=== PATIENT | female | born 1970 | race Caucasian/White ===

== ENCOUNTER 2018-04-29 18:45 | Emergency (ER) | payer OTHER, SELFPAY ==
[2018-04-29 18:55] VITALS: BP 106/61; PULSE 75; RESP 20; TEMP 37.1; O2SAT 98; BMI 23.3
--- NOTE | 2018-04-29 19:12 | DI.RAD.S_ITS ---
PROCEDURE: XR ANKLE RT MIN 3V INDICATIONS: twisted right ankle TECHNIQUE: 3 views of the ankle were acquired. COMPARISON: None. FINDINGS: Bones: Mildly displaced oblique fracture of the distal fibula. Ankle mortise is normally aligned. No suspicious bony lesions. Soft tissues: No tibiotalar joint effusion. Achilles tendon appears normal. IMPRESSION: Distal fibular fracture. Dictated by: Steff Franklin M.D. on 04/29/2018 at 19:34 Approved by: Steff Franklin M.D. on 04/29/2018 at 19:34
--- NOTE | 2018-04-29 20:19 | ED.LOWEXIN ---
HPI - Extremity Injury (Lower) <Angela Jung PA-C - Last Filed: 04/29/18 22:40> General Chief Complaint: Extremity Injury, Lower Stated Complaint: SLIPPED ON A TRAIL AND HURT HER RIGHT ANKLE Time Seen by Provider: 04/29/18 20:19 Source: patient Mode of arrival: wheelchair Limitations: no limitations History of Present Illness HPI Narrative: This 48-year-old healthy female slipped while hiking on a downhill slope, rolled her right foot and ankle and heard a snapping sound, then fell. She states that she had pain on the outside of her right ankle area right away and continues to have localized pain there. She did not have any other injury. She has not been able to bear weight or walk secondary to the pain. She has had swelling. She denies any pain in the foot. Denies any weakness or paresthesia. Related Data Home Medications Medication Instructions Recorded Confirmed CA PANTOTHENATE/FOLIC ACID/VIT 1 tab PO Q DAY #0 01/15/12 (MULTIVITAMIN) CHOLECALCIFEROL (VITAMIN D3) 400 iu PO Q DAY #0 01/15/12 (Vitamin D) IBUPROFEN (#MOTRIN) 600 mg PO PRN #0 01/15/12 loratadine [Claritin] 10 mg PO PRN #0 01/15/12 SENNOSIDES/DOCUSATE SODIUM (Stool 1 tab PO #0 01/29/12 Softener Tablet) Previous Rx's Medication Instructions Recorded temazepam 30 mg capsule See Label Instructions PO HS #0 tab 04/11/18 hydrocodone-acetaminophen [Boulder] 1 tab PO Q4H PRN #10 tab 04/29/18 Allergies Allergy/AdvReac Type Severity Reaction Status Date / Time meperidine [MEPERIDINE] Allergy Unknown Verified 04/29/18 18:59 BEE STING Allergy Severe Muscle Pain Uncoded 04/11/18 08:13 Review of Systems <Angela Jung PA-C - Last Filed: 04/29/18 22:40> Review of Systems All systems reviewed & are unremarkable except as noted in HPI and below Exam <Angela Jung PA-C - Last Filed: 04/29/18 22:40> Narrative Exam Narrative: GENERAL APPEARANCE: Patient sitting comfortably, in no distress. LUNGS: Clear to auscultation bilaterally. HEART: Rate and rhythm regular without murmur, normal S1 and S2, no S3 or S4. MUSCULOSKELETAL: Right lateral ankle there is a moderate effusion. She is exquisitely tender around the lateral malleolus. No tenderness elsewhere about the foot or ankle. No tenderness over the calf, chopra, or knee. She has full range of motion of the right knee. Reduced at the ankle secondary to tenderness, but she is able to maintain plantar and dorsiflexion of the toes against resistance. NEUROVASCULAR: Right foot is warm and pink with brisk cap refill and 2+ PT and DP pulses. Sensation is grossly intact Initial Vital Signs Initial Vital Signs: Vital Signs Temperature 98.7 F 04/29/18 18:55 Pulse Rate 75 04/29/18 18:55 Respiratory Rate 20 04/29/18 18:55 Blood Pressure 106/61 04/29/18 18:55 Pulse Oximetry 98 04/29/18 18:55 <Milo Chavez MD - Last Filed: 05/01/18 05:34> Initial Vital Signs Initial Vital Signs: Vital Signs Temperature 98.7 F 04/29/18 18:55 Pulse Rate 75 04/29/18 18:55 Respiratory Rate 20 04/29/18 18:55 Blood Pressure 106/61 04/29/18 18:55 Pulse Oximetry 98 04/29/18 18:55 Course <Angela Jung PA-C - Last Filed: 04/29/18 22:40> Hospital Course: Patient was placed in a stirrup splint and Sanjiv wrap. Splint fit comfortably, neurovascular intact after splint placement. Patient was given a Boulder prepack for tonight and a prescription. She will also take ibuprofen at home. She agreed to return if any acutely worsening symptoms, otherwise will call Orthopedics 1st thing in the morning for follow-up Orders Ordered: Discontinued Medications Hydrocodone Bitart/Acetaminophen (Vicodin Prepack) 1 bottle MISC SEEINSTR ONE Stop: 04/29/18 20:45 Last Admin: 04/29/18 22:27 Dose: 1 bottle Hydrocodone Bitart/Acetaminophen (Boulder 5/325) 1 tab PO NOW ONE Stop: 04/29/18 20:45 Last Admin: 04/29/18 21:06 Dose: 1 tab Ibuprofen (Advil) 800 mg PO NOW ONE Stop: 04/29/18 20:45 Last Admin: 04/29/18 21:07 Dose: 800 mg Vital Signs - 8 hr 04/29/18 18:55 04/29/18 22:27 Temperature 98.7 F Pulse Rate 75 68 Respiratory Rate 20 18 Blood Pressure 106/61 Blood Pressure [Right Arm] 98/56 L Pulse Oximetry 98 98 <Milo Chavez MD - Last Filed: 05/01/18 05:34> Orders Ordered: Discontinued Medications Hydrocodone Bitart/Acetaminophen (Vicodin Prepack) 1 bottle MISC SEEINSTR ONE Stop: 04/29/18 20:45 Last Admin: 04/29/18 22:27 Dose: 1 bottle Hydrocodone Bitart/Acetaminophen (Boulder 5/325) 1 tab PO NOW ONE Stop: 04/29/18 20:45 Last Admin: 04/29/18 21:06 Dose: 1 tab Ibuprofen (Advil) 800 mg PO NOW ONE Stop: 04/29/18 20:45 Last Admin: 04/29/18 21:07 Dose: 800 mg Vital Signs - 8 hr 04/29/18 18:55 04/29/18 22:27 Temperature 98.7 F Pulse Rate 75 68 Respiratory Rate 20 18 Blood Pressure 106/61 Blood Pressure [Right Arm] 98/56 L Pulse Oximetry 98 98 MDM - Extremity Injury (Lower) <Angela Jung PA-C - Last Filed: 04/29/18 22:40> Imaging Data extremity: Radiologist's impression: [place] [address] XRay Report Signed Patient: Maryjane Freed MR#: [id number] : 1970 Acct:[id number] Age/Sex: 48 / F Date of Service: 04/29/18 Loc: ED Accession Number: [id number] Procedure: XR ankle RT min 3V Ordering Provider: Angela Jung P.A-C PROCEDURE: XR ANKLE RT MIN 3V INDICATIONS: twisted right ankle TECHNIQUE: 3 views of the ankle were acquired. COMPARISON: None. FINDINGS: Bones: Mildly displaced oblique fracture of the distal fibula. Ankle mortise is normally aligned. No suspicious bony lesions. Soft tissues: No tibiotalar joint effusion. Achilles tendon appears normal. IMPRESSION: Distal fibular fracture. Dictated by: Steff Franklin M.D. on 04/29/2018 at 19:34 Approved by: Steff Franklin M.D. on 04/29/2018 Discharge Plan Departure Patient Disposition: Home, Self-Care Clinical Impression: Fracture tibia/fibula Discharge Date/Time: 04/29/18 22:43 Interventions: ED Discharge Assessment Last Done: 04/29/18 22:40 Instructions: DI for Ankle Fracture Activity Restrictions/Additional Instructions: You have a break in the fibula, the small bone on the outside of your lower leg that meets at the ankle. This is only minimally out of place, so we have splinted this for you tonight. Please avoid putting weight on it, and use crutches at all times. Take ibuprofen 6-800 mg every 8 hr, and you can use the pain pills that we gave you tonight if needed. I have given you a prescription for a little bit more of the pain medication to fill if needed. You should not drive while taking this as it can make you sleepy. Please call [facility] 1st thing tomorrow and let them know that you were seen here for a fracture that was splinted, and need to be seen for follow-up this week. Return if you have any acutely worsening symptoms in the interim Prescriptions: New hydrocodone-acetaminophen [Boulder] 5-325 mg tablet 1 tab PO Q4H PRN (Reason: leg/ankle pain) Qty: 10 RF: 0 No Action loratadine [Claritin] 10 MG tablet 10 mg PO PRN Qty: 0 RF: 0 CA PANTOTHENATE/FOLIC ACID/VIT (MULTIVITAMIN) 1 tab PO Q DAY Qty: 0 RF: 0 CHOLECALCIFEROL (VITAMIN D3) (Vitamin D) 400 iu PO Q DAY Qty: 0 RF: 0 IBUPROFEN (#MOTRIN) 600 mg PO PRN Qty: 0 RF: 0 SENNOSIDES/DOCUSATE SODIUM (Stool Softener Tablet) 1 tab PO Qty: 0 RF: 0 temazepam 30 mg capsule See Label Instructions PO HS Qty: 0 RF: 1 Referrals: [facility] [Outside] Can Morgan MD [Physician] - <Milo Chavez MD - Last Filed: 05/01/18 05:34> Sign Out Provider Sign Out Attestation: The PA/GLOBAL ACCOUNT MANAGER functioned independently for the care of this pt, I was available, but not asked to participate in care. I am unable to determine appropriateness of management without personally examining the pt.
--- NOTE | 2018-04-29 20:23 | PC.NURSE ---
Max pain in R lateral malleolar aspect of R ankle
--- NOTE | 2018-04-29 20:24 | ED_ITS ---
HPI - Extremity Injury (Lower) <Angela Jung PA-C - Last Filed: 04/29/18 22:40> General Chief Complaint: Extremity Injury, Lower Stated Complaint: SLIPPED ON A TRAIL AND HURT HER RIGHT ANKLE Time Seen by Provider: 04/29/18 20:19 Source: patient Mode of arrival: wheelchair Limitations: no limitations History of Present Illness HPI Narrative: This 48-year-old healthy female slipped while hiking on a downhill slope, rolled her right foot and ankle and heard a snapping sound, then fell. She states that she had pain on the outside of her right ankle area right away and continues to have localized pain there. She did not have any other injury. She has not been able to bear weight or walk secondary to the pain. She has had swelling. She denies any pain in the foot. Denies any weakness or paresthesia. Related Data Home Medications Medication Instructions Recorded Confirmed CA PANTOTHENATE/FOLIC ACID/VIT 1 tab PO Q DAY #0 01/15/12 (MULTIVITAMIN) CHOLECALCIFEROL (VITAMIN D3) 400 iu PO Q DAY #0 01/15/12 (Vitamin D) IBUPROFEN (#MOTRIN) 600 mg PO PRN #0 01/15/12 loratadine [Claritin] 10 mg PO PRN #0 01/15/12 SENNOSIDES/DOCUSATE SODIUM (Stool 1 tab PO #0 01/29/12 Softener Tablet) Previous Rx's Medication Instructions Recorded temazepam 30 mg capsule See Label Instructions PO HS #0 tab 04/11/18 hydrocodone-acetaminophen [Asher] 1 tab PO Q4H PRN #10 tab 04/29/18 Allergies Allergy/AdvReac Type Severity Reaction Status Date / Time meperidine [MEPERIDINE] Allergy Unknown Verified 04/29/18 18:59 BEE STING Allergy Severe Muscle Pain Uncoded 04/11/18 08:13 Review of Systems <Angela Jung PA-C - Last Filed: 04/29/18 22:40> Review of Systems All systems reviewed & are unremarkable except as noted in HPI and below Exam <Angela Jung PA-C - Last Filed: 04/29/18 22:40> Narrative Exam Narrative: GENERAL APPEARANCE: Patient sitting comfortably, in no distress. LUNGS: Clear to auscultation bilaterally. HEART: Rate and rhythm regular without murmur, normal S1 and S2, no S3 or S4. MUSCULOSKELETAL: Right lateral ankle there is a moderate effusion. She is exquisitely tender around the lateral malleolus. No tenderness elsewhere about the foot or ankle. No tenderness over the calf, chopra, or knee. She has full range of motion of the right knee. Reduced at the ankle secondary to tenderness , but she is able to maintain plantar and dorsiflexion of the toes against resistance. NEUROVASCULAR: Right foot is warm and pink with brisk cap refill and 2+ PT and DP pulses. Sensation is grossly intact Initial Vital Signs Initial Vital Signs: Vital Signs Temperature 98.7 F 04/29/18 18:55 Pulse Rate 75 04/29/18 18:55 Respiratory Rate 20 04/29/18 18:55 Blood Pressure 106/61 04/29/18 18:55 Pulse Oximetry 98 04/29/18 18:55 <Milo Chavez MD - Last Filed: 05/01/18 05:34> Initial Vital Signs Initial Vital Signs: Vital Signs Temperature 98.7 F 04/29/18 18:55 Pulse Rate 75 04/29/18 18:55 Respiratory Rate 20 04/29/18 18:55 Blood Pressure 106/61 04/29/18 18:55 Pulse Oximetry 98 04/29/18 18:55 Course <Angela Jung PA-C - Last Filed: 04/29/18 22:40> Hospital Course: Patient was placed in a stirrup splint and Sanjiv wrap. Splint fit comfortably, neurovascular intact after splint placement. Patient was given a Asher prepack for tonight and a prescription. She will also take ibuprofen at home. She agreed to return if any acutely worsening symptoms, otherwise will call Orthopedics 1st thing in the morning for follow-up Orders Ordered: Discontinued Medications Hydrocodone Bitart/Acetaminophen (Vicodin Prepack) 1 bottle MISC SEEINSTR ONE Stop: 04/29/18 20:45 Last Admin: 04/29/18 22:27 Dose: 1 bottle Hydrocodone Bitart/Acetaminophen (Asher 5/325) 1 tab PO NOW ONE Stop: 04/29/18 20:45 Last Admin: 04/29/18 21:06 Dose: 1 tab Ibuprofen (Advil) 800 mg PO NOW ONE Stop: 04/29/18 20:45 Last Admin: 04/29/18 21:07 Dose: 800 mg Vital Signs - 8 hr 04/29/18 18:55 04/29/18 22:27 Temperature 98.7 F Pulse Rate 75 68 Respiratory Rate 20 18 Blood Pressure 106/61 Blood Pressure [Right Arm] 98/56 L Pulse Oximetry 98 98 <Milo Chavez MD - Last Filed: 05/01/18 05:34> Orders Ordered: Discontinued Medications Hydrocodone Bitart/Acetaminophen (Vicodin Prepack) 1 bottle MISC SEEINSTR ONE Stop: 04/29/18 20:45 Last Admin: 04/29/18 22:27 Dose: 1 bottle Hydrocodone Bitart/Acetaminophen (Asher 5/325) 1 tab PO NOW ONE Stop: 04/29/18 20:45 Last Admin: 04/29/18 21:06 Dose: 1 tab Ibuprofen (Advil) 800 mg PO NOW ONE Stop: 04/29/18 20:45 Last Admin: 04/29/18 21:07 Dose: 800 mg Vital Signs - 8 hr 04/29/18 18:55 04/29/18 22:27 Temperature 98.7 F Pulse Rate 75 68 Respiratory Rate 20 18 Blood Pressure 106/61 Blood Pressure [Right Arm] 98/56 L Pulse Oximetry 98 98 MDM - Extremity Injury (Lower) <Angela Jung PA-C - Last Filed: 04/29/18 22:40> Imaging Data extremity: Radiologist's impression: [place] [address] XRay Report Signed Patient: Maryjane Freed MR#: [id number] : 1970 Acct:[id number] Age/Sex: 48 / F Date of Service: 04/29/18 Loc: ED Accession Number: [id number] Procedure: XR ankle RT min 3V Ordering Provider: Angela Jung P.A-C PROCEDURE: XR ANKLE RT MIN 3V INDICATIONS: twisted right ankle TECHNIQUE: 3 views of the ankle were acquired. COMPARISON: None. FINDINGS: Bones: Mildly displaced oblique fracture of the distal fibula. Ankle mortise is normally aligned. No suspicious bony lesions. Soft tissues: No tibiotalar joint effusion. Achilles tendon appears normal. IMPRESSION: Distal fibular fracture. Dictated by: Steff Franklin M.D. on 04/29/2018 at 19:34 Approved by: Steff Franklin M.D. on 04/29/2018 Discharge Plan Departure Patient Disposition: Home, Self-Care Clinical Impression: Fracture tibia/fibula Discharge Date/Time: 04/29/18 22:43 Interventions: ED Discharge Assessment Last Done: 04/29/18 22:40 Instructions: DI for Ankle Fracture Activity Restrictions/Additional Instructions: You have a break in the fibula, the small bone on the outside of your lower leg that meets at the ankle. This is only minimally out of place, so we have splinted this for you tonight. Please avoid putting weight on it, and use crutches at all times. Take ibuprofen 6-800 mg every 8 hr, and you can use the pain pills that we gave you tonight if needed. I have given you a prescription for a little bit more of the pain medication to fill if needed. You should not drive while taking this as it can make you sleepy. Please call [facility] 1st thing tomorrow and let them know that you were seen here for a fracture that was splinted, and need to be seen for follow-up this week. Return if you have any acutely worsening symptoms in the interim Prescriptions: New hydrocodone-acetaminophen [Asher] 5-325 mg tablet 1 tab PO Q4H PRN (Reason: leg/ankle pain) Qty: 10 RF: 0 No Action loratadine [Claritin] 10 MG tablet 10 mg PO PRN Qty: 0 RF: 0 CA PANTOTHENATE/FOLIC ACID/VIT (MULTIVITAMIN) 1 tab PO Q DAY Qty: 0 RF: 0 CHOLECALCIFEROL (VITAMIN D3) (Vitamin D) 400 iu PO Q DAY Qty: 0 RF: 0 IBUPROFEN (#MOTRIN) 600 mg PO PRN Qty: 0 RF: 0 SENNOSIDES/DOCUSATE SODIUM (Stool Softener Tablet) 1 tab PO Qty: 0 RF: 0 temazepam 30 mg capsule See Label Instructions PO HS Qty: 0 RF: 1 [facility]] Can Morgan MD [Physician] - <Milo Chavez MD - Last Filed: 05/01/18 05:34> Sign Out Provider Sign Out Attestation: The PA/LITIGATION LEGAL ASSISTANT functioned independently for the care of this pt, I was available, but not asked to participate in care. I am unable to determine appropriateness of management without personally examining the pt.
[2018-04-29] MEDS: HYDROCODONE/ACET 5/325 TABLET 1 TAB PO (21:06)
[2018-04-29] MEDS: IBUPROFEN 400 MG TABLET 800 MG PO (21:07)
[2018-04-29 22:27] VITALS: BP 98/56; PULSE 68; RESP 18; O2SAT 98
[2018-04-29] MEDS: HYDROCODONE/ACET 5/325 PREPACK 1 BOTTLE MISC (22:27)
--- NOTE | 2018-04-29 22:40 | PC.NURSE ---
Provided crutch use with written dc instruction and pt able to demonstrate using crutches from pt's bed to nursing zepeda and back to bed in stable gait after crutch fitted by this RN.
== END 2018-04-29 22:43 | disposition home or self-care (01) ==
PROVIDERS: Emergency Provider Internal Medicine
DX: S82.201A Unspecified fracture of shaft of right tibia, initial encounter for closed fracture (principal); S82.401A Unspecified fracture of shaft of right fibula, initial encounter for closed fracture; W01.0XXA Fall on same level from slipping, tripping and stumbling without subsequent striking against object, initial encounter; Y93.01 Activity, walking, marching and hiking
CPT/HCPCS: 73610; 99283

== ENCOUNTER → 2018-10-17 08:04 | Outpatient (CLI) | payer OTHER, SELFPAY ==
--- NOTE | 2018-10-17 | DI.MG.S_ITS ---
BILATERAL DIGITAL SCREENING MAMMOGRAM 3D/2D WITH CAD: 10/17/2018 CLINICAL: Routine screening. Family history of breast cancer. Comparison is made to exams dated: 09/28/2016 mammogram, 09/09/2015 mammogram, and 06/11/2014 mammogram - [facility]. The tissue of both breasts is heterogeneously dense. This may lower the sensitivity of mammography. Current study was also evaluated with a Computer Aided Detection (CAD) system. No significant masses, calcifications, or other findings are seen in either breast. There has been no significant interval change. IMPRESSION: NEGATIVE There is no mammographic evidence of malignancy. A 1 year screening mammogram is recommended. This exam was interpreted at Station ID: [id number]. NOTE: For mammograms, a report in lay terms will be sent to the patient. Approximately 15% of breast malignancies will not be visualized mammographically. In the management of a palpable breast mass, a negative mammogram must not discourage biopsy of a clinically suspicious lesion. Electronically Signed By: Brooklyn francois/jennifer:10/17/2018 08:39:46 letter sent: Normal Exam ACR BI-RADS Category 1: Negative [id number]
== END ==
DX: Z12.31 Encounter for screening mammogram for malignant neoplasm of breast (principal); Z80.3 Family history of malignant neoplasm of breast
CPT/HCPCS: 77063; 77067

== ENCOUNTER → 2019-05-25 08:00 | Outpatient (CLI) | payer OTHER, SELFPAY ==
[2019-05-25 10:00] LABS: Cholesterol 199 mg/dL (140-199); Glucose 94 mg/dL (70-100); HDL Cholesterol 72 mg/dL (40-60); LDL Cholesterol Calculated 111 mg/dL (<100); Triglycerides 78 mg/dL (35-150)
== END ==
PROVIDERS: Visit Provider Registered Nurse
DX: Z00.00 Encounter for general adult medical examination without abnormal findings (principal)
CPT/HCPCS: 36415; 80061; 82947

== ENCOUNTER → 2019-05-26 08:51 | Outpatient (CLI) | payer OTHER, SELFPAY ==
--- NOTE | 2019-05-26 08:54 | DI.RAD.S_ITS ---
PROCEDURE: XR CHEST 2V INDICATIONS: Unintentional weight loss TECHNIQUE: 2 views of the chest were acquired. COMPARISON: [facility], RG, XR CXR 2 VIEW, 12/21/2004, 8:09. [facility], JELANI, CHEST 2 VIEW, 02/24/2009, 8:03. FINDINGS: Surgical changes and devices: None. Lungs and pleura: Lungs are clear. No pleural effusions or pneumothorax. Mediastinum: Mediastinal contours are normal. Heart size is normal. Bones and chest wall: No suspicious bony abnormalities. Soft tissues appear unremarkable. IMPRESSION: No acute cardiopulmonary disease. Dictated by: Chris Odell M.D. on 05/26/2019 at 9:49 Approved by: Chris Odell M.D. on 05/26/2019 at 9:50
[2019-05-26 10:28] LABS: Add Manual Diff / Slide Review NO; Basophils Absolute Auto 0 /uL (0-100); Basophils Percent Auto 0.8 % (0-2); Eosinophils Absolute Auto 0 /uL (0-450); Eosinophils Percent Auto 0.8 % (2-4); Hematocrit 40.5 % (36-46); Hemoglobin 13.1 g/dL (12.0-16.0); Lymphocytes Absolute Auto 1300 /uL (1100-4500); Lymphocytes Percent Auto 26.6 % (25-40); Mean Corpuscular HGB Conc 32.3 % (30-36); Mean Corpuscular Volume 83.4 fL (80-100); Monocytes Absolute Auto 400 /uL (0-900); Monocytes Percent Auto 9.2 % (3-14); Neutrophils Absolute Auto 3000 /uL (1500-7000); Neutrophils Percent Auto 62.6 % (50-75); Platelet Count 255 X10^3/uL (150-400); Red Blood Cell Count 4.86 X10^6/uL (4.0-5.2); Red Cell Distribution Width 15.7 % (11.6-14.8); White Blood Cell Count 4.8 X10^3/uL (4.5-11.0)
[2019-05-26 10:42] LABS: Hemoglobin A1C% w Est Avg Glu 5.2 % (4.0-6.0)
[2019-05-26 10:48] LABS: Alanine Aminotransferase 167 IU/L (9-52); Albumin 4.7 g/dL (3.5-5.0); Albumin Globulin Ratio 1.6 (1.0-2.8); Alkaline Phosphatase 52 U/L (38-126); Aspartate Aminotransferase 102 IU/L (14-36); BUN Creatinine Ratio 21.3 (6-22); Bilirubin Total 1.2 mg/dL (0.2-1.3); Blood Urea Nitrogen 17 mg/dL (7-17); Calcium 9.5 mg/dL (8.4-10.2); Carbon Dioxide 25 mmol/L (22-32); Chloride 105 mmol/L (98-107); Estimated Glomerular Filt Rate > 60.0 mL/min (>60); Glucose 82 mg/dL (70-100); HEMOLYSIS < 15 (0-50); Potassium 5.1 mmol/L (3.4-5.1); Sodium 140 mmol/L (137-145); Total Protein 7.7 g/dL (6.3-8.2)
[2019-05-26 10:56] LABS: C-Reactive Protein Quant < 0.5 mg/dL (<1.0)
[2019-05-26 11:10] LABS: Erythrocyte Sedimentation Rate 3 MM/HR (0-20)
[2019-05-26 11:11] LABS: Appearance Urine UA CLEAR; Bilirubin Urine UA NEGATIVE (NEGATIVE); Color Urine UA YELLOW; Glucose Urine UA NEGATIVE (Negative); Ketones Urine UA NEGATIVE (NEGATIVE); Leukocyte Esterase Urine UA TRACE (NEGATIVE); Nitrite Urine UA NEGATIVE (Negative); Occult Blood Urine UA NEGATIVE (Negative); Protein Urine UA NEGATIVE (Negative); Urobilinogen Urine UA 0.2 E.U./dL (0.2); pH Urine UA 5.5 (4.5-8.0)
[2019-05-26 11:22] LABS: TSH w/ Reflex to FT4 2.49 uIU/mL (0.47-4.68)
[2019-05-26 11:34] LABS: Bacteria Urine Few (2-10); RBC Urine 0-1/HPF (0-5/HPF); Squamous Epithelial Cell Urine 1-5 /HPF (0-5/HPF); WBC Urine 0-1/HPF (0-5/HPF)
[2019-05-26 11:35] LABS: Culture Indicated Urine Specimen Cultured
== END ==
PROVIDERS: Visit Provider Registered Nurse
DX: R63.4 Abnormal weight loss (principal); Z12.11 Encounter for screening for malignant neoplasm of colon
CPT/HCPCS: 36415; 71046; 80053; 81001; 83036; 84443; 85025; 85651; 86140; 87086

== ENCOUNTER → 2019-05-27 08:15 | Outpatient (CLI) | payer OTHER, SELFPAY ==
[2019-05-29 14:45] LABS: Fecal Immunochemical Test NOT DETECTED (NOT DETECTED)
== END ==
PROVIDERS: PCP Registered Nurse; Visit Provider Registered Nurse
DX: Z12.11 Encounter for screening for malignant neoplasm of colon (principal)
CPT/HCPCS: 82274

== ENCOUNTER → 2019-06-01 07:14 | Outpatient (CLI) | payer OTHER, SELFPAY ==
--- NOTE | 2019-06-01 07:15 | DI.US.S_ITS ---
PROCEDURE: US ABDOMEN COMPLETE INDICATIONS: ELEVATED LIVER ENZYMES TECHNIQUE: Real-time scanning was performed of the abdominal and retroperitoneal organs, with image documentation. COMPARISON: [facility], , ABDOMEN LIMITED, 09/03/2012, 11:26. FINDINGS: Liver: Liver is normal in size and homogeneous in echotexture. Gallbladder: No gallstones identified. Normal gallbladder wall. No pericholecystic fluid. Negative sonographic Berg sign. Biliary ducts: Intrahepatic bile ducts are non-dilated. Extrahepatic bile duct caliber measures 6.0 mm. Normal is 6-7 mm or less in diameter, or 10 mm or less post-cholecystectomy. Pancreas: Visualized portions of the pancreas are sonographically normal. Spleen: Spleen is normal in size and homogeneous in echotexture. Kidneys: Kidneys are normal in size and echotexture. Right kidney measures 12.0 cm long; left kidney measures 11.0 cm long. No hydronephrosis or nephrolithiasis. No solid masses. Simple right renal cyst measuring 21 mm. Aorta: Visualized aorta is normal in caliber at less than 3 cm. Iliacs: Proximal common iliac arteries are normal in caliber at less than 2.5 cm. IVC: Intrahepatic inferior vena cava is patent. Miscellaneous: No free abdominal fluid. IMPRESSION: No source for elevated LFTs identified. Dictated by: Juan Madera [facility] Interpreted: Julius Rasmussen MD on 06/01/2019 at 14:13 Approved by: Julius Rasmussen M.D. on 06/01/2019 at 14:20
== END ==
PROVIDERS: PCP Registered Nurse; Visit Provider Registered Nurse
DX: R74.0 Nonspecific elevation of levels of transaminase and lactic acid dehydrogenase [LDH] (principal)
CPT/HCPCS: 76700

== ENCOUNTER → 2019-06-02 07:50 | Outpatient (CLI) | payer OTHER, SELFPAY ==
[2019-06-04 16:24] LABS: Hepatitis A Antibody IgM NONREACTIVE (NONREACTIVE); Hepatitis Acute Panel Interp 0.01; Hepatitis B Core Antibody IgM NONREACTIVE (NONREACTIVE); Hepatitis B Surface Antigen NONREACTIVE (NONREACTIVE); Hepatitis C Antibody NONREACTIVE
[2019-06-04 22:00] LABS: (tTG) Ab, IgA < 1 U/mL
== END ==
PROVIDERS: PCP Registered Nurse; Visit Provider Registered Nurse
DX: R74.8 Abnormal levels of other serum enzymes (principal); K52.9 Noninfective gastroenteritis and colitis, unspecified; R63.4 Abnormal weight loss
CPT/HCPCS: 36415; 80074; 82784; 83516; 86255

== ENCOUNTER 2019-09-30 07:30 | Outpatient (RCR) | payer OTHER, SELFPAY ==
--- NOTE | 2019-09-18 13:16 | PT.OIE ---
Current Diagnoses Other specified disorders of muscle (09/18/19) Stress incontinence (female) (male) (09/18/19) Past Medical History (Last Reviewed 04/24/19 @ 08:49 by Can Morgan MD) Chicken pox (Resolved) Genital warts (Resolved 1987) HPV (human papilloma virus) infection (Resolved 1987) Past Surgical History (Last Reviewed 04/24/19 @ 08:49 by Can Morgan MD) Anesthesia (Resolved) Status post endometrial ablation (Resolved 2002) Visit Care Team Role Provider Type ARISTEO Barger Primary Care Provider Advanced Station Worker Specialty: Medical Address: [address] [place] [address] Email: [email or web address] Can Morgan MD Attending Provider Physician Specialty: TELEVISION ACTOR Address: [address] [place] [address] Email: [email or web address] Physical Therapy Initial Evaluation PT-OP-A Visit Information Start: 09/18/19 07:28 Freq: Status: Active Protocol: Document 09/18/19 07:30 AMB (Rec: 09/20/19 13:16 AMB [email or web address]) Out-Patient Physical Therapy Visit Information Visit Information Visit Type Initial Evaluation Visit Start Time 07:30 Visit Stop Time 08:15 Total Visit Minutes 45 Visit Number 1 PT-OP-B Current Condition Start: 09/18/19 07:28 Freq: Status: Active Protocol: Document 09/18/19 07:30 AMB (Rec: 09/20/19 13:16 AMB [email or web address]) Current Condition History of Current Condition Onset Date 2 years ago Current Complaints intermittent urinary leaking with strong cough/ sneeze History of Current Condition Maryjane reports she has had a little bit of leaking on and off. She wears pantiliners and it is just a few drops, especially if she is standing or walking. She thinks she may be going through menopause , but had a uterine ablation at age 33 and has not had a period since. She has noticed more thinking vaginal tissue/ needing lubrication with intercourse. She does have a previous history of constipation, but it is now under good control, but she does have issues with hemorrhoids as a result. She has had one vaginal delivery and reports tearing, not sure what degree maybe a 2. She denies a specific feeling of pelvic heaviness. She does drink a lot of water, guesses probably close to 160 oz/day, but does work out a lot. Treatment Goals Patient/Caregiver Goals Avoid leaking, avoid worsening of symptoms Prior Functional Status Baseline Function- ADL's Independent Baseline Function- Mobility Independent Current Functional Impairments (Reported) Functional Limitations- ADL's leaking with cough or sneeze Personal Factors Other Personal Factors That May Effect History of neck pain Therapy/Recovery PT-OP-C Subjective Start: 09/18/19 07:28 Freq: Status: Active Protocol: Document 09/18/19 07:30 AMB (Rec: 09/20/19 13:16 AMB [email or web address]) Patient Questionnaires Pelvic Pain and Urgency/Frequency Patient Symptom Scale Pelvic Pain Score 2 PT-OP-I Pelvic Floor Start: 09/18/19 07:28 Freq: Status: Active Protocol: Document 09/18/19 07:30 AMB (Rec: 09/20/19 13:16 AMB [email or web address]) Pelvic Floor Assessment Urine Pelvic Floor Surgery uterine ablation 15 years ago Leakage Size Small Leakage Cause Cough,Sneeze Leaks Per Day intermittent Voiding Frequency hourly Urine Pad Type Panty Liner Prolapse Cystocele Grade 2 Rectocele Grade 2 Perineal Descent Resting Absent Bearing Present Contraction Ability Voluntary Contraction Weak Voluntary Relaxation Moderate Manual Muscle Testing Left 3 Manual Muscle Testing Right 3 Manual Muscle Testing Anterior 2 Manual Muscle Testing Posterior 3 Muscle Endurance (Seconds) 15 Number of Quick Contractions In 10 4 Seconds PT-OP-Q Treatments Start: 09/18/19 07:28 Freq: Status: Active Protocol: Document 09/18/19 07:30 AMB (Rec: 09/20/19 13:16 AMB [email or web address]) Therapeutic Exercises Supine Exercises 1 Supine Exercise Name quick flicks/long holds PT-OP-T Assessment and Plan Start: 09/18/19 07:28 Freq: Status: Active Protocol: Document 09/18/19 07:30 AMB (Rec: 09/20/19 13:16 AMB [email or web address]) Physical Therapy Assessment Rehab Potential Rehabilitation Potential Good Evaluation Complexity Number of Personal Factors/Comorbidities 1-2 Number of Body Systems Impaired 1-2 Clinical Presentation at Evaluation Stable Impairments Impairments Strength Goals Two Impairment pelvic floor strength Short Term Goal (STG) Maryjane will improve her pelvic floor strength in all planes to 4/5. STG Duration 3 weeks Assistant Professor Of Life Sciences Goal (LTG) Maryjane will be able to stand while coughing without leaking . LTG Duration 6 weeks One Impairment HEP Short Term Goal (STG) Maryjane will be independent and consistent with a pelvic floor strengthening program. STG Duration 3 weeks Assessment Summary Assessment Maryjane attends physical therapy with stress urinary incontinence and asymptomatic prolapse. She thinks she may be going through menopause and this is likely contributing to her more recent increase in symptoms. While she was able to contract her pelvic floor well, she will need to improve her ability to contract it with functional movements, especially considering her weightlifting for exercise. Physical Therapy Plan Frequency and Duration Frequency of Treatment 1x/Week Duration of Treatment 6 weeks Plan of Care Start Date 09/18/19 Plan of Care End Date 10/30/19 Therapeutic Interventions Therapeutic Interventions Home Exercise Program,Manual Therapy,Neuromuscular Re- education,Self-Care/Home Management,Therapeutic Activities,Therapeutic Exercises Modalities Biofeedback,Electric Stimulation Next Visit Focus/Plan Next Note Type Treatment Note Next Visit Plan begin with sEMG, progress into functional strengthening, especially with pt's weight lifting
--- NOTE | 2019-09-18 13:17 | PT.OPPOC ---
Current Diagnoses Other specified disorders of muscle (09/18/19) Stress incontinence (female) (male) (09/18/19) Visit Care Team Role Provider Type ARISTEO Barger Primary Care Provider Advanced Senior Account Executive Specialty: Medical Address: [address] [place] [address], [address] Email: [email or web address] Can Morgan MD Attending Provider Physician Specialty: TELEPRINTER INSTALLER Address: [address] [place] [address], [address] Email: [email or web address] Plan Of Care PT-OP-T Assessment and Plan Start: 09/18/19 07:28 Freq: Status: Active Protocol: Document 09/18/19 07:30 AMB (Rec: 09/20/19 13:16 AMB [email or web address]) Physical Therapy Assessment Rehab Potential Rehabilitation Potential Good Evaluation Complexity Number of Personal Factors/Comorbidities 1-2 Number of Body Systems Impaired 1-2 Clinical Presentation at Evaluation Stable Impairments Impairments Strength Goals Two Impairment pelvic floor strength Short Term Goal (STG) Maryjane will improve her pelvic floor strength in all planes to 4/5. STG Duration 3 weeks Investigation Division Captain Goal (LTG) Maryjane will be able to stand while coughing without leaking . LTG Duration 6 weeks One Impairment HEP Short Term Goal (STG) Maryjane will be independent and consistent with a pelvic floor strengthening program. STG Duration 3 weeks Assessment Summary Assessment Maryjane attends physical therapy with stress urinary incontinence and asymptomatic prolapse. She thinks she may be going through menopause and this is likely contributing to her more recent increase in symptoms. While she was able to contract her pelvic floor well, she will need to improve her ability to contract it with functional movements, especially considering her weightlifting for exercise. Physical Therapy Plan Frequency and Duration Frequency of Treatment 1x/Week Duration of Treatment 6 weeks Plan of Care Start Date 09/18/19 Plan of Care End Date 10/30/19 Therapeutic Interventions Therapeutic Interventions Home Exercise Program,Manual Therapy,Neuromuscular Re- education,Self-Care/Home Management,Therapeutic Activities,Therapeutic Exercises Modalities Biofeedback,Electric Stimulation Next Visit Focus/Plan Next Note Type Treatment Note Next Visit Plan begin with sEMG, progress into functional strengthening, especially with pt's weight lifting Plan of Care Dates Plan of Care Start Date 09/18/19 Plan of Care End Date 10/30/19
--- NOTE | 2019-09-30 16:29 | PT.OTN ---
Current Diagnoses Other specified disorders of muscle (09/30/19) Stress incontinence (female) (male) (09/30/19) Physical Therapy Treatment Note PT-OP-A Visit Information Start: 09/18/19 07:28 Freq: Status: Active Protocol: Document 09/30/19 07:30 AMB (Rec: 09/30/19 08:16 AMB [id number]) Out-Patient Physical Therapy Visit Information Visit Information Visit Type Treatment Note Visit Start Time 07:30 Visit Stop Time 08:10 Total Visit Minutes 40 Visit Number 2 PT-OP-B Current Condition Start: 09/18/19 07:28 Freq: Status: Active Protocol: Document 09/18/19 07:30 AMB (Rec: 09/20/19 13:16 AMB [email or web address]) Current Condition History of Current Condition Onset Date 2 years ago Current Complaints intermittent urinary leaking with strong cough/ sneeze History of Current Condition Maryjane reports she has had a little bit of leaking on and off. She wears pantiliners and it is just a few drops, especially if she is standing or walking. She thinks she may be going through menopause , but had a uterine ablation at age 33 and has not had a period since. She has noticed more thinking vaginal tissue/ needing lubrication with intercourse. She does have a previous history of contipation, but it is now under good control, but she does have issues with hemerroids as a result. She has had one vaginal delivery and reports tearing, not sure what degree maybe a 2. She denies a specific feeling of pelvic heaviness. She does drink a lot of water, guesses probably close to 160 oz/day, but does work out a lot. Treatment Goals Patient/Caregiver Goals Avoid leaking, avoid worsening of symptoms Prior Functional Status Baseline Function- ADL's Independent Baseline Function- Mobility Independent Current Functional Impairments (Reported) Functional Limitations- ADL's leaking with cough or sneeze Personal Factors Other Personal Factors That May Effect History of neck pain Therapy/Recovery PT-OP-C Subjective Start: 09/18/19 07:28 Freq: Status: Active Protocol: Document 09/30/19 07:30 AMB (Rec: 09/30/19 08:16 AMB [id number]) OP-PT Subjective Patient Comments Patient Comments Pt notes exercises have been going fine. PT-OP-I Pelvic Floor Start: 09/18/19 07:28 Freq: Status: Active Protocol: Document 09/18/19 07:30 AMB (Rec: 09/20/19 13:16 AMB [email or web address]) Pelvic Floor Assessment Urine Pelvic Floor Surgery uterine ablation 15 years ago Leakage Size Small Leakage Cause Cough,Sneeze Leaks Per Day intermittent Voiding Frequency hourly Urine Pad Type Panty Liner Prolapse Cystocele Grade 2 Rectocele Grade 2 Perineal Descent Resting Absent Bearing Present Contraction Ability Voluntary Contraction Weak Voluntary Relaxation Moderate Manual Muscle Testing Left 3 Manual Muscle Testing Right 3 Manual Muscle Testing Anterior 2 Manual Muscle Testing Posterior 3 Muscle Endurance (Seconds) 15 Number of Quick Contractions In 10 4 Seconds PT-OP-Q Treatments Start: 09/18/19 07:28 Freq: Status: Active Protocol: Document 09/30/19 07:30 AMB (Rec: 09/30/19 08:16 AMB [id number]) Therapeutic Exercises Supine Exercises 2 Supine Exercise Name roll in roll out Resistance #2 band Reps/Minutes 2x10 ea 1 Supine Exercise Name quick flicks/long holds Standing Exercises 4 Standing Exercise Name quick flicks with different foot positions Comments WBOS vs stride stance 3 Standing Exercise Name lunge Reps/Minutes 2x10 2 Standing Exercise Name squat Reps/Minutes 2x10 1 Standing Exercise Name sit to stand Comments c pelvic floor PT-OP-T Assessment and Plan Start: 09/18/19 07:28 Freq: Status: Active Protocol: Document 09/30/19 07:30 AMB (Rec: 09/30/19 08:16 AMB [id number]) Physical Therapy Assessment Goals Two Impairment pelvic floor strength Short Term Goal (STG) Maryjane will improve her pelvic floor strength in all planes to 4/5. STG Duration 3 weeks Custodial Goal (LTG) Maryjane will be able to stand while coughing without leaking . LTG Duration 6 weeks One Impairment HEP Short Term Goal (STG) Maryjane will be independent and consistent with a pelvic floor strengthening program. STG Duration MET Assessment Summary Assessment Maryjane feels like the exercises that we went through today will be enough for her to continue with independently. She feels ready for discharge at this time. She will continue with her strengthening exercises. Physical Therapy Plan Discharge Physical Therapy Discharge Reasons Patient Request
== END 2019-10-01 08:18 ==
LOC: PHYS 07:30
PROVIDERS: PCP Registered Nurse
DX: M62.89 Other specified disorders of muscle (principal); N39.3 Stress incontinence (female) (male)
CPT/HCPCS: 97110; 97161

== ENCOUNTER → 2019-10-31 09:10 | Outpatient (CLI) | payer OTHER, SELFPAY ==
--- NOTE | 2019-10-31 | DI.MG.S_ITS ---
BILATERAL DIGITAL SCREENING MAMMOGRAM 3D/2D WITH CAD: 10/31/2019 CLINICAL: Routine screening. Family history of breast cancer. Comparison is made to exams dated: 10/17/2018 mammogram, 09/28/2016 mammogram, and 09/09/2015 mammogram - [facility]. The tissue of both breasts is heterogeneously dense. This may lower the sensitivity of mammography. Current study was also evaluated with a Computer Aided Detection (CAD) system. No significant masses, calcifications, or other findings are seen in either breast. There has been no significant interval change. IMPRESSION: NEGATIVE There is no mammographic evidence of malignancy. A 1 year screening mammogram is recommended. This exam was interpreted at Station ID: [id number]. NOTE: For mammograms, a report in lay terms will be sent to the patient. Approximately 15% of breast malignancies will not be visualized mammographically. In the management of a palpable breast mass, a negative mammogram must not discourage biopsy of a clinically suspicious lesion. Electronically Signed By: Shaka westbrook/jennifer:11/02/2019 07:42:22 letter sent: Normal Exam ACR BI-RADS Category 1: Negative 3341F
== END ==
PROVIDERS: Family Provider Registered Nurse; PCP Registered Nurse
DX: Z12.31 Encounter for screening mammogram for malignant neoplasm of breast (principal); Z80.3 Family history of malignant neoplasm of breast
CPT/HCPCS: 77063; 77067

== ENCOUNTER → 2019-11-16 07:50 | Outpatient (CLI) | payer OTHER, SELFPAY ==
[2019-11-16 10:13] LABS: Alanine Aminotransferase 138 IU/L (<35); Aspartate Aminotransferase 108 IU/L (14-36)
== END ==
PROVIDERS: PCP Registered Nurse; Visit Provider Registered Nurse
DX: R74.0 Nonspecific elevation of levels of transaminase and lactic acid dehydrogenase [LDH] (principal)
CPT/HCPCS: 36415; 84450; 84460

== ENCOUNTER → 2019-12-07 07:25 | Outpatient (CLI) | payer OTHER, SELFPAY ==
[2019-12-07 07:54] LABS: Cholesterol 196 mg/dL (140-199); Glucose 101 mg/dL (70-100); HDL Cholesterol 77 mg/dL (40-60); LDL Cholesterol Calculated 102 mg/dL (<100); Triglycerides 86 mg/dL (35-150)
[2019-12-07 07:57] LABS: Add Manual Diff / Slide Review NO; Basophils Absolute Auto 0 /uL (0-100); Eosinophils Absolute Auto 100 /uL (0-450); Eosinophils Percent Auto 1.8 % (2-4); Hematocrit 36.4 % (36-46); Hemoglobin 12.1 g/dL (12.0-16.0); Lymphocytes Absolute Auto 1300 /uL (1100-4500); Mean Corpuscular HGB Conc 33.1 % (30-36); Mean Corpuscular Volume 78.3 fL (80-100); Monocytes Absolute Auto 400 /uL (0-900); Monocytes Percent Auto 8.6 % (3-14); Neutrophils Absolute Auto 2400 /uL (1500-7000); Neutrophils Percent Auto 56.6 % (50-75); Platelet Count 244 X10^3/uL (150-400); Red Blood Cell Count 4.64 X10^6/uL (4.0-5.2); Red Cell Distribution Width 16.1 % (11.6-14.8); White Blood Cell Count 4.2 X10^3/uL (4.5-11.0)
== END ==
PROVIDERS: PCP Registered Nurse; Visit Provider Registered Nurse
DX: R63.4 Abnormal weight loss (principal); Z13.0 Encounter for screening for diseases of the blood and blood-forming organs and certain disorders involving the immune mechanism; Z00.00 Encounter for general adult medical examination without abnormal findings
CPT/HCPCS: 36415; 80061; 82947; 85025

== ENCOUNTER → 2020-08-19 07:30 | Outpatient (CLI) | payer OTHER, SELFPAY ==
[2020-08-19 09:50] LABS: Free T4, Direct Thyroxine 1.02 ng/dL (0.78-2.19)
[2020-08-19 10:04] LABS: Thyroid Stimulating Hormone 2.56 uIU/mL (0.47-4.68)
== END ==
PROVIDERS: Referring Provider Obstetrics & Gynecology; Visit Provider Obstetrics & Gynecology
DX: L65.9 Nonscarring hair loss, unspecified (principal)
CPT/HCPCS: 36415; 84439; 84443

== ENCOUNTER → 2020-11-09 08:11 | Outpatient (CLI) | payer OTHER, SELFPAY ==
--- NOTE | 2020-11-09 08:13 | DI.MG.S_ITS ---
BILATERAL DIGITAL SCREENING MAMMOGRAM 3D/2D WITH CAD: 11/09/2020 CLINICAL: Routine screening. Family history of breast cancer. Comparison is made to exams dated: 10/31/2019 mammogram, 10/17/2018 mammogram, and 09/28/2016 mammogram - [facility]. The tissue of both breasts is heterogeneously dense. This may lower the sensitivity of mammography. Current study was also evaluated with a Computer Aided Detection (CAD) system. No significant masses, calcifications, or other findings are seen in either breast. There has been no significant interval change. IMPRESSION: NEGATIVE There is no mammographic evidence of malignancy. A 1 year screening mammogram is recommended. This exam was interpreted at Station ID: [id number]. NOTE: For mammograms, a report in lay terms will be sent to the patient. Approximately 15% of breast malignancies will not be visualized mammographically. In the management of a palpable breast mass, a negative mammogram must not discourage biopsy of a clinically suspicious lesion. Electronically Signed By: Angela chavarria/jennifer:11/09/2020 09:09:45 letter sent: Normal Exam ACR BI-RADS Category 1: Negative 3341F
== END ==
PROVIDERS: PCP Family Medicine; Referring Provider Obstetrics & Gynecology; Visit Provider Obstetrics & Gynecology
DX: Z12.31 Encounter for screening mammogram for malignant neoplasm of breast (principal)
CPT/HCPCS: 77063; 77067

== ENCOUNTER → 2021-01-04 09:10 | Outpatient (CLI) | payer OTHER, SELFPAY ==
[2021-01-04 11:03] LABS: COVID19 -Nasal RAPID Negative (Negative)
== END ==
PROVIDERS: PCP Family Medicine; Visit Provider Surgery
DX: Z01.812 Encounter for preprocedural laboratory examination (principal); Z20.822 Contact with and (suspected) exposure to COVID-19
CPT/HCPCS: 87635; C9803

== ENCOUNTER 2021-01-06 08:12 | Day surgery (SDC) | payer OTHER, SELFPAY ==
[2021-01-06] VITALS (7 sets, daily range): BP systolic 91–111; BP diastolic 46–66; PULSE 42–81; RESP 12–15; TEMP 36.1–37.5; O2SAT 99–100; BMI 23.3
--- NOTE | 2021-01-06 | PATH_ITS ---
[facility] Accession Number: [id number] . 01 Material submitted: . colon - POLYP AT 15CM . 02 Diagnosis: Polyp at 15 cm, Biopsy: Portion of hyperplastic polyp x1. Superficial portions of colorectal mucosa x 3 with no significant histomorphologic abnormality. MRV 01/11/2021 1525 Local . 02 Electronically signed: . Ana Champion MD, Pathologist NPI- [id number] . 01 Gross description: . POLYP AT 15CM: Received in formalin are 4 fragment(s) of adams, soft tissue measuring 0.1 x 0.1 x 0.1 cm to 0.3 x 0.2 x 0.2 cm submitted entirely in 1 cassette(s) /EDUARDO 01/10/20212028 Local . 02 Pathologist provided ICD-10: Z12.11, K63.5 . 02 CPT . 045233 Performed at: 01 [facility] [address] [facility], [place], [place] [id number] MD Melquiades Hayes MD Phone: [phone] Performed at: 02 [facility] [address] [place], [place] [id number] MD Britany Culp MD Phone: [phone]
[2021-01-06] MEDS: SODIUM CHLORIDE 0.9% 1,000 ML 200 ML IV (08:36)
--- NOTE | 2021-01-06 09:28 | PM.HP.1 ---
History of Present Illness History of Present Illness Date Patient Seen: 01/06/21 Time Patient Seen: 09:28 Chief complaint: SDC Narrative: This is a 50-year-old woman who had a colonoscopy 5 years ago, on which 1 polyp was found. She was recommended to have repeat colonoscopy in 5 years because both her parents have had a history of colon polyps. She has had some episodes of diarrhea, but is generally constipated most of the time. She takes stool softeners to treated prevent constipation. She denies any other changes in bowel habit. Denies melena, hematochezia, unexplained abdominal pain, unexplained weight loss. ROS: Thirteen system review is otherwise negative other than as mentioned below and in HPI. PE: GENERAL: Well groomed and cooperative. Appears stated age. Answers questions promptly and appropriately. Vital signs noted. HENT: Normocephalic, atraumatic. Hearing intact. EYES: Conjunctiva pink, sclera white, no periorbital swelling. CARDIOVASCULAR: Regular rate. No pedal edema. RESPIRATORY: Non-tachypneic, breathing comfortably on room air. GASTROINTESTINAL: Abdomen soft and non-distended GENITALURINARY: No flank tenderness. MUSCULOSKELETAL: Equal tone and mass bilaterally. SKIN: Warm, dry, soft, appropriate color for ethnicity. No other lesions, rashes, or wounds. NEURO: Alert and Oriented X 3. No gross sensory deficits, or cognitive issues. PSYCH: Appropriate affect and mood. Patient History Medical History Chicken pox Chronic constipation Colon polyps Encounter for preventive care Genital warts (1987) HPV (human papilloma virus) infection (1987) Vaginal delivery Surgical History Anesthesia Status post endometrial ablation (2002) Family & Social History Family History Father High cholesterol Mother Type 2 diabetes mellitus Cerebrovascular accident (CVA), unspecified mechanism Social History: household members spouse Tobacco & Substance use: Smoking Status Never smoker alcohol intake current alcohol intake frequency 0-2 drinks per day Substance Use Type does not use Meds Home Medications and Allergies Home Medications Medication Instructions Recorded Confirmed Type CA PANTOTHENATE/FOLIC ACID/VIT 1 tab PO Q DAY #0 01/15/12 01/06/21 History (MULTIVITAMIN) CHOLECALCIFEROL (VITAMIN D3) 400 iu PO Q DAY #0 01/15/12 01/06/21 History (Vitamin D) IBUPROFEN (#MOTRIN) 600 mg PO PRN #0 01/15/12 01/06/21 History loratadine [Claritin] 10 mg PO PRN #0 01/15/12 01/06/21 History hydrocortisone 2.5 % topical cream 1 applictn TOP BID PRN #28 gram 07/06/19 01/06/21 Rx clobetasol 0.05 % topical ointment 1 applictn TOP DAILY #30 gram 08/08/20 01/06/21 Rx docusate sodium 250 mg capsule 250 mg PO BEDTIME #100 cap 08/23/20 01/06/21 Rx CMP Estradiol Vaginal Cream 0.125% 1 g VAGINAL 2XW #30 g 10/04/20 01/06/21 Rx sodium,potassium,mag sulfates 17.5 177 ml PO DAILY #354 ml 01/02/21 Rx gram-3.13 gram-1.6 gram oral soln Allergies Allergy/AdvReac Type Severity Reaction Status Date / Time latex Allergy Mild ITCHING Verified 01/06/21 08:33 meperidine [MEPERIDINE] AdvReac Unknown Doesn't Verified 01/06/21 08:33 feel good BEE STING Allergy Severe Localized Uncoded 01/06/21 08:33 swelling Exam Vital Signs (past 8 hours): - 01/06/21 08:36 Temperature 99.5 F Pulse Rate 58 L Respiratory Rate 14 Blood Pressure 106/62 Pulse Oximetry 99 Oxygen Delivery Method Room Air Assessment & Plan Assessment and plan (1) Colon polyps: Status: Acute Assessment & Plan narrative: Risks and benefits of screening colonoscopy and possible polypectomy were discussed with the patient including risk of bleeding, perforation, need for additional procedures, risks of anesthesia. The patient desires to proceed with the colonoscopy procedure. COVID-19 COVID-19 status: Negative Result date/Date tested (Pos, Neg/Pending): 01/05/21 Time Spent With Patient Time with patient: 15-24 minutes Quality VTE Deep Vein Thrombosis/Pulmonary Embolism Present on Admission: No
--- NOTE | 2021-01-06 09:35 | PM.OP.ENDO ---
Operative Date/Time/Diagnoses Date of procedure: 01/06/21 Time of procedure: 09:35 Pre-op diagnosis: Personal and family history of colon polyps Procedure & Clinicians Study performed: Colonoscopy Cold forceps biopsy of polyp in the rectum at 57 Procedural sedation performed by the endoscopist Same procedure as scheduled: Yes Indications: Personal history of colon polyps, family history of colon polyps Surgeon: Arin Gama Procedure Notes SCOAP/Timeout: Performed Procedure in detail: The patient was brought to the room and placed in left lateral decubitus position with all bony prominences padded. A time-out was performed and then the patient was given procedural sedation starting with [4] mg of Versed and [100] mcg of fentanyl. Vitals were monitored throughout the procedure and remained stable. Once adequately sedated, the procedure was begun. A rectal exam was performed revealing [no abnormalities]. The colonoscope was then introduced to the rectum and advanced to the cecum in the usual fashion. Colon was very tortuous. []The cecum was identified by the appendiceal orifice, the mucosal tri-fold, and the ileocecal valve. The scope was then retracted while rotating side to side and examining each mucosal fold. A small polyp was found at 15 cm and removed with cold forceps. [] At the conclusion of the procedure retroflexion was performed and [small grade 1-2 internal hemorrhoids without stigmata of bleeding were seen]. The scope was then withdrawn from the rectum the procedure was concluded. The patient tolerated the procedure well and was transferred to the PACU in stable condition. Scope withdrawal time: 7 Sedation minutes: 24 Findings: polyp (In the benign-appearing polyp) Specimen(s): other (Follow-up) Complications: none Impression: Single Post-procedure Recommendations: Colonscopy in 5 years (Due to personal history of colon polyps, family history, and new polyp today) Follow up: as needed Disposition: PACU
[2021-01-06] MEDS: MIDAZOLAM 5 MG/5 ML VIAL IV (10:04)
[2021-01-06] MEDS: fentaNYL 250 MCG/5 ML INJ IV (10:06)
== END 2021-01-06 10:58 | disposition home or self-care (01) ==
PROVIDERS: PCP Family Medicine; Referring Provider Family Medicine; Visit Provider Surgery
PROC: 0DJD8ZZ Inspection of Lower Intestinal Tract, Via Natural or Artificial Opening Endoscopic (ICD-10-PCS; CPT 45378; principal; 2021-01-06 09:15)
DX: Z12.11 Encounter for screening for malignant neoplasm of colon (principal); Z86.010 Personal history of colon polyps; Z83.71 Family history of colonic polyps; K64.0 First degree hemorrhoids; K63.5 Polyp of colon
CPT/HCPCS: 45380; 99152; J2250; J3010

== ENCOUNTER → 2022-10-24 07:50 | Outpatient (CLI) | payer OTHER, SELFPAY ==
--- NOTE | 2022-10-24 | DI.MG.S_ITS ---
BILATERAL DIGITAL SCREENING MAMMOGRAM 3D/2D WITH CAD: 10/24/2022 CLINICAL: Routine screening. Family history of breast cancer. Comparison is made to exams dated: 11/09/2020 mammogram, 10/31/2019 mammogram, and 10/17/2018 mammogram - [facility]. Both breasts are heterogeneously dense, which may obscure small masses (category c / 51-75% glandular tissue). Current study was also evaluated with a Computer Aided Detection (CAD) system. No significant masses, calcifications, or other findings are seen in either breast. There has been no significant interval change. IMPRESSION: NEGATIVE There is no mammographic evidence of malignancy. A 1 year screening mammogram is recommended. This exam was interpreted at Station ID: [id number]. NOTE: For mammograms, a report in lay terms will be sent to the patient. Approximately 15% of breast malignancies will not be visualized mammographically. In the management of a palpable breast mass, a negative mammogram must not discourage biopsy of a clinically suspicious lesion. Electronically Signed By: Vladislav Ledesma M.D. acr/penrad:10/24/2022 12:23:59 letter sent: Normal Exam ACR BI-RADS Category 1: Negative 3341F
== END ==
PROVIDERS: PCP Internal Medicine; Referring Provider Internal Medicine; Visit Provider Internal Medicine
DX: Z12.31 Encounter for screening mammogram for malignant neoplasm of breast (principal); Z80.3 Family history of malignant neoplasm of breast
CPT/HCPCS: 77063; 77067

== ENCOUNTER → 2024-08-19 07:36 | Outpatient (CLI) | payer OTHER, SELFPAY ==
[2024-08-19 08:47] LABS: HEMOLYSIS < 15 (0-50)
[2024-08-19 08:49] LABS: Hemoglobin A1C% w Est Avg Glu 5.3 % (4.0-6.0)
[2024-08-19 08:52] LABS: BUN Creatinine Ratio 18.6 (6-22); Blood Urea Nitrogen 16 mg/dL (7-17); Calcium 9.3 mg/dL (8.4-10.2); Carbon Dioxide 27 mmol/L (22-32); Chloride 103 mmol/L (98-107); Cholesterol 198 mg/dL (140-199); Estimated Glomerular Filt Rate > 60 mL/min (>60); Glucose 104 mg/dL (70-100); HDL Cholesterol 56 mg/dL (40-60); LDL Cholesterol Calculated 127 mg/dL (<100); Sodium 135 mmol/L (137-145); Triglycerides 73 mg/dL (35-150)
[2024-08-19 17:36] LABS: High Sensitivity CRP - Cardiac < 0.3 mg/L (1.0-3.0)
== END ==
PROVIDERS: PCP Family Medicine; Referring Provider Family Medicine; Visit Provider Family Medicine
DX: Z00.00 Encounter for general adult medical examination without abnormal findings (principal)
CPT/HCPCS: 36415; 80048; 80061; 83036; 86140

== ENCOUNTER → 2025-10-04 14:13 | Outpatient (CLI) | payer OTHER, SELFPAY ==
--- NOTE | 2025-10-04 14:15 | DI.RAD.S_ITS ---
PROCEDURE: XR DEXA AXIAL SKELETON INDICATIONS: screen osteoporosis COMPARISON: None. FINDINGS: Lumbar Spine: Bone mineral density 1.044 g/cm2, T score 0.0. Left Femoral Neck: Bone mineral density 0.958 g/cm2, T score 1.0. Left Hip: Bone mineral density 1.102 g/cm2, T score 1.3. Fracture Risk Calculation (when applicable): Not applicable (T score greater or equal to -1.0 to: NORMAL) (T score from -1.1 to -2.4: OSTEOPENIA) (T score less than or equal to -2.5: OSTEOPOROSIS) IMPRESSION: Normal bone mineral density. Consider follow-up as below. Follow-up guidelines as follows: Osteoporosis: Consider a repeat DEXA and Vertebral Fracture Assessment (VFA) exam in 2 years or sooner if medically necessary, to reassess this patient's status. Osteopenia: Consider a repeat DEXA in 2-3 years to reassess this patient's status, or if there is a new clinical indication. Normal: Consider a repeat DEXA in 5 years or sooner, or if there is a new clinical indication. All treatment decisions require clinical judgment and consideration of individual patient factors, including patient preferences, comorbidities, previous drug use, risk factors not captured in the FRAX model (e.g., frailty, falls, vitamin D deficiency, increased bone turnover, interval significant decline in bone density ) and possible under- or over-estimation of fracture risk by FRAX. In addition, the NOF Guide recommends that FDA-approved medical therapies be considered in postmenopausal women and men age >= 50 years with a: * Hip or vertebral (clinical or morphometric) fracture * T-score of <=-2.5 at the spine or hip * Ten-year fracture probability by FRAX of >= 3% for hip fracture or >=20% for major osteoporotic fracture. Dictated by: Tod John M.D. on 10/04/2025 at 14:46 Approved by: Tod John M.D. on 10/04/2025 at 14:47
== END ==
LOC: RAD 14:14
PROVIDERS: PCP Family Medicine; Referring Provider Family Medicine; Visit Provider Family Medicine
DX: M85.89 Other specified disorders of bone density and structure, multiple sites (principal)
CPT/HCPCS: 77080

== ENCOUNTER → 2025-10-12 08:27 | Outpatient (CLI) | payer OTHER, SELFPAY ==
--- NOTE | 2025-10-12 08:28 | DI.MG.S_ITS ---
MM screening mammo BI: 10/12/2025. BI-RADS: 1 CLINICAL: 55-year old female for bilateral screening mammogram. Tyrer-Cuzick lifetime risk of 10.1%. No personal or first-degree family history of breast cancer. PRIOR EXAMS: 10/24/2022, 11/09/2020, 10/31/2019, 10/17/2018, 09/28/2016. MAMMOGRAPHY TECHNIQUE: 2D and 3D (tomosynthesis) digital mammographic views obtained, with additional images as needed for full coverage. Current study was also evaluated with a Computer Aided Detection (CAD) system. DENSITY C. The breasts are heterogeneously dense, which may obscure small masses. MAMMOGRAPHY FINDINGS Bilateral: No suspicious mass, asymmetry, microcalcification, or other abnormality seen. IMPRESSION: * No evidence of malignancy. RECOMMENDATIONS Bilateral * Annual screening mammography. OVERALL ASSESSMENT CATEGORY BI-RADS-1: Negative. The [employer] recommends annual screening mammography beginning at age 40 for women with average risk of breast cancer. ELECTRONICALLY SIGNED: Esthela Layne M.D. on 10/13/2025 at 03:21:55 PM PT Interpreting Station ID: [id number]
== END ==
PROVIDERS: PCP Family Medicine; Referring Provider Family Medicine; Visit Provider Family Medicine
DX: Z12.31 Encounter for screening mammogram for malignant neoplasm of breast (principal); R92.333 Mammographic heterogeneous density, bilateral breasts
CPT/HCPCS: 77063; 77067